=== PATIENT | male | born 1985 | race Caucasian/White ===

== ENCOUNTER 2018-02-05 20:45 | Emergency (ER) | payer BC ==
[~2018-02-05] VITALS: Ht 190.5 cm; Wt 113.4 kg
[~2018-02-05 20:45] MED LIST: COLACE100 MG PO; KEFLEX500 MG PO; NOHOMEMEDICATIONS; NORCO 5-325 TA1 EACH PO
[2018-02-05] MEDS ORDERED: ACETAMINOPHEN-1 EAC1 (20:57)
[2018-02-05 21:38] LABS: HEMATOCRIT 42.7 % (42.0-52.0); HEMOGLOBIN 14.4 gm/dL (14.0-18.0); MCH 29.3 pg (26.0-34.0); MCHC 33.7 g/dL (28.0-37.0); MPV 7.3 fl. (7.2-11.1); NUCLEATED RBCS 0 /100WBC; PLATELET COUNT* 271 thou/uL (150-400); RBC 4.91 mil/uL (4.50-6.00); RDW-CV 13.9 % (10.5-14.5); WBC 16.9 thou/uL (4.0-11.0)
[2018-02-05 21:44] LABS: CALCIUM 9.2 mg/dL (8.5-10.1); CREATININE 1.3 mg/dL (0.6-1.3); POTASSIUM 3.8 mmol/L (3.5-5.1)
[2018-02-05 21:48] LABS: ALBUMIN 3.7 g/dL (3.4-5.0); TOTAL BILIRUBIN 0.7 mg/dL (<0.1-1.0); TOTAL PROTEIN 7.6 g/dL (6.4-8.2)
[2018-02-05] MEDS ORDERED: IBUPROFEN 800800 M1 PO (22:33)
[2018-02-05] MEDS ORDERED: KEFLEX500 M1 PO (22:34)
[2018-02-05 22:44] LABS: ABSOLUTE BASOPHILS 0.2 thou/uL (0.0-0.2); ABSOLUTE LYMPHOCYTES 1.5 thou/uL (0.8-5.3); ABSOLUTE NEUTROPHILS 14.2 thou/uL (1.6-8.1); PLATELET ESTIMATE ADEQUATE
[2018-02-05 23:35] VITALS: BP 98/55
== END 2018-02-05 23:35 | disposition home or self-care (01) ==
LOC: M.ERS 20:45
PROVIDERS: Physician Assistant
DX: T50.991A Poisoning by other drugs, medicaments and biological substances, accidental (unintentional), initial encounter (principal); J02.0 Streptococcal pharyngitis; Y92.89 Other specified places as the place of occurrence of the external cause